=== PATIENT | male | born 1970 | race Caucasian/White ===

== ENCOUNTER 2017-08-06 11:26 | Outpatient (CLI) | payer MEDICARE, MEDICAID ==
--- NOTE | 2017-08-06 14:13 | CT ---
CT ABDOMEN AND PELVIS WITHOUT CONTRAST STONE PROTOCOL: Date: 08/06/17 HISTORY: Renal insufficiency; renal stones. COMPARISON: CT dated 06/12/14. FINDINGS: Mild atelectasis lung bases. No pericardial effusion. The right kidney is atrophic. There is abnormal thickening of the proximal right ureter, although it was seen on the prior examination. Punctate calculus superior pole right kidney. No calculus is see n within the left kidney. There is abnormal thickening of the proximal left ureter. Chow catheter is in place with wall thickening of the urinary bladder. No hydronephrosis. 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 Moderate stool burden of the rectal vault. No evidence of bowel obstruction. Chronic post interventi on change of the right external oblique muscle. Noncontrast evaluation of the liver, spleen, pancrea s, and gallbladder are unremarkable. Aortoiliac contour is nonaneurysmal. IMPRESSION: 1. Punctate nonobstructing calculus superior pole right kidney. 2. Atrophy of the right kidney. 3. Abnormal thickening of the proximal ureters bilaterally, can be seen with ureteritis or scarring , although urothelial malignancy cannot be totally excluded. If there is concern, CT urogram is scott mmended. 4. The left femoral nail extends outside the superior cortex. There is also chronic dislocation of the dysplastic left hip with neoacetabulum of left iliac wing. POS: [facility]
[2017-08-06] MEDS ORDERED: Furosemide 40 MG/4 ML VIAL ONE (14:51)
--- NOTE | 2017-08-06 15:31 | NM ---
DIURETIC RADIONUCLIDE RENOGRAM: Date: 08/06/17 HISTORY: Disorder of kidney and ureter, unspecified. Renal insufficiency. Congenital occlusion of ureteropelv ic junction. History of renal calculi. RADIOPHARMACEUTICAL: 8.8 mCi technetium-99m MAG3 injected intravenously. DIURETIC: 32 mg IV Lasix administered 15 minutes prior to the injection of the radiopharmaceutical. CORRELATION: CT scan from today. COMPARISON: Diuretic renogram of 06/03/16. FINDINGS: There is decreased flow and decreased uptake by the right kidney compared to the left with a differe ntial function of 27% on the right and 73% on the left. There is tracer excretion by both kidneys in to the urinary bladder (Chow in place). The renogram curves are downsloping despite a decreased peak and slower excretion pattern on the rig ht compared to the left. IMPRESSION: 1. No evidence of high grade obstruction on either side. 2. Decreased flow and function of the right kidney. POS: [facility]
== END 2017-08-06 11:27 | disposition home or self-care (01) ==
LOC: CT 11:26
PROVIDERS: ATTEND Urology
DX: N28.9 Disorder of kidney and ureter, unspecified (principal); Q62.11 Congenital occlusion of ureteropelvic junction; Z87.442 Personal history of urinary calculi; N20.0 Calculus of kidney; N26.1 Atrophy of kidney (terminal)
CPT/HCPCS: 74176; 78708; A4641; A9562; J1940

== ENCOUNTER 2017-11-16 12:13 | Outpatient (CLI) | payer MEDICARE, MEDICAID ==
[2017-11-16 12:55] LABS: Anion Gap 11 mmol/L (10-20); BUN (Urea Nitrogen) 34 mg/dL (8.9-20.6); Calc. Creatinine Clearance 0 mL/min (70-130); Calcium 9.4 mg/dL (7.8-10.44); Carbon Dioxide 23 mmol/L (22-29); Chloride 110 mmol/L (98-107); Estimated GFR-MDRD 60; Glucose 94 mg/dL (70-105); Potassium 4.9 mmol/L (3.5-5.1); Sodium 139 mmol/L (136-145)
--- NOTE | 2017-11-16 14:06 | ULT ---
RENAL ULTRASOUND: HISTORY: Kidney stone. COMPARISON: 12/22/16. TECHNIQUE: Multiplanar, guevara scale, and color Doppler images were obtained in a renal ultrasound. FINDINGS: The right kidney demonstrates cortical thinning and is echogenic. The left kidney is normal in echog enicity without hydronephrosis or calculus. The kidneys measure 7.6 and 9.3 cm in length on the righ t and left, respectively. Limited visualization of the urinary bladder is unremarkable. IMPRESSION: Echogenic right kidney may be secondary to chronic medical renal disease. POS: [facility]
--- NOTE | 2017-11-16 14:18 | RAD ---
ABDOMEN 1 VIEW: HISTORY: Urinary tract obstruction. COMPARISON: 07/23/09. FINDINGS: Gas and stool predominantly obscure the right renal shadow. Left renal shadow is not well visualized . Subtle irregularity density projecting over the right lower quadrant may represent surgical suture s. No urinary tract calcifications are reliably demonstrated. Phlebolith projects over the left pel vis. Internal fixation of the left hip is partially visualized. 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 IMPRESSION: Chronic-type findings are as detailed above. No urinary tract calcifications are reliably demonstrat ed. POS: [facility]
== END 2017-11-16 12:14 | disposition home or self-care (01) ==
LOC: ULT 12:13
PROVIDERS: ATTEND Urology
DX: N20.0 Calculus of kidney (principal); N36.0 Urethral fistula; Q62.11 Congenital occlusion of ureteropelvic junction; Z87.442 Personal history of urinary calculi
CPT/HCPCS: 36415; 74018; 76770; 80048

== ENCOUNTER 2018-12-06 12:35 | Outpatient (CLI) | payer MEDICARE, MEDICAID ==
--- NOTE | 2018-12-06 14:04 | RAD ---
KUB: Date: 12-06-18 Comparison: 11-16-17 History: Congenital occlusion, renal calculi. FINDINGS: Supine imaging is provided, limiting assessment for free intraperitoneal air and bowel obstruction. T here is gaseous distention of bowel within the midabdomen, likely on the basis of nongaseous distenti on of colon. No discrete calcification overlies either renal shadow. Congenital deformity of left hip noted, suggesting congenital developmental dysplasia. There is post-operative hardware associated wi th the proximal left femur. The bones are demineralized. IMPRESSION: No obvious renal calculi. Congenital/chronic abnormalities as detailed above. Mild gaseous distention noted involving the sigmoid colon. POS: [facility]
[2018-12-06 14:05] LABS: Anion Gap 15 mmol/L (10-20); BUN (Urea Nitrogen) 37 mg/dL (8.9-20.6); Calc. Creatinine Clearance 0 mL/min (70-130); Calcium 9.4 mg/dL (7.8-10.44); Carbon Dioxide 22 mmol/L (22-29); Chloride 115 mmol/L (98-107); Estimated GFR-MDRD 44; Glucose 69 mg/dL (70-105); Potassium 5.8 mmol/L (3.5-5.1); Sodium 146 mmol/L (136-145)
[2018-12-06 14:06] LABS: Bilirubin Moderate (Negative); Blood, Urine Trace (Negative); Glucose, Urine (Dipstick) Negative (Negative); Leukocyte Moderate (Negative); Nitrite Negative (Negative); Protein, Urine (Dipstick) Negative (Neg-Trace); Urobilinogen 0.2 mg/dL (0.2-1.0); pH, Urine 8.5 (5.0-9.0)
[2018-12-06 14:16] LABS: Clarity CLEAR (Clear)
[2018-12-06 14:18] LABS: Urine Culture Reflex No No
--- NOTE | 2018-12-06 14:58 | ULT ---
RENAL ULTRASOUND: Date: 12-06-18 Comparison: 11-16-17 History: Kidney stone. Technique: Multiplanar grayscale sonographic imaging of the kidneys and urinary bladder obtained. FINDINGS: Detailed assessment is somewhat limited secondary to bowel gas and wheelchair bound nature of patient . The right kidney is small and echogenic. Bowel gas obscures the majority of the right kidney limiting assessment for size and for right hepatic abnormality. Right kidney appears grossly unchanged when c ompared to the prior exam. The left kidney measures approximately 8.8 cm craniocaudal dimension and demonstrates no stone, hydro nephrosis, or mass. Imaging of the urinary bladder appears grossly unremarkable. IMPRESSION: Limited renal ultrasound, demonstrating no significant interval change when compared to the prior exa mination as detailed above. POS: [facility]
== END 2018-12-06 12:36 | disposition home or self-care (01) ==
LOC: ULT 12:35
PROVIDERS: ATTEND Urology
DX: N36.0 Urethral fistula (principal); Q62.11 Congenital occlusion of ureteropelvic junction; N20.0 Calculus of kidney; Q65.9 Congenital deformity of hip, unspecified; K63.89 Other specified diseases of intestine; Z87.442 Personal history of urinary calculi
CPT/HCPCS: 36415; 74018; 76770; 80048; 81003; 87077; 87086; 87186

== ENCOUNTER 2022-04-08 10:36 | Outpatient (CLI) | payer MEDICARE, MEDICAID | END 2022-04-08 10:37 | disposition home or self-care (01) | LOC: ULT 10:36 | PROVIDERS: ATTEND Urology | DX: N20.0 Calculus of kidney (principal); K59.00 Constipation, unspecified; N27.1 Small kidney, bilateral; N28.89 Other specified disorders of kidney and ureter | CPT/HCPCS: 74018; 76770 ==

== ENCOUNTER 2022-06-20 11:43 | Outpatient (CLI) | payer MEDICARE, MEDICAID ==
[2022-06-20 12:48] LABS: Hemoglobin 11.5 g/dL (13.5-17.5); Mean Corpuscular HGB CONC 31.4 g/dL (32.0-36.0); Mean Corpuscular Hemoglobin 30.2 pg (27.0-33.0); Mean Corpuscular Volume 96.1 fl (81.2-95.1); Mean Platelet Volume 9.5 fl (7.4-10.4); Platelet Count 262 10x3/uL (150-450); RBC Distribution Width 14.1 % (11.5-14.5); Red Blood Cell (RBC) Count 3.81 10x6/uL (4.32-5.72); White Blood Cell (WBC) Count 7.4 10x3/uL (3.5-10.5)
[2022-06-20 13:11] LABS: PTT 31.4 sec (22.0-33.0); Prothrombin Time 10.6 sec (9.5-12.1)
[2022-06-20 13:12] LABS: Anion Gap 14 mmol/L (10-20); BUN (Urea Nitrogen) 29 mg/dL (8.9-20.6); Calc. Creatinine Clearance 0 mL/min (70-130); Calcium 8.9 mg/dL (7.8-10.44); Carbon Dioxide 26 mmol/L (22-29); Chloride 105 mmol/L (98-107); Estimated GFR 60; Glucose 95 mg/dL (70-105); Potassium 5.1 mmol/L (3.5-5.1); Sodium 140 mmol/L (136-145)
== END 2022-06-20 11:44 | disposition home or self-care (01) ==
LOC: LABBT 11:43
PROVIDERS: ATTEND Urology
DX: Z01.818 Encounter for other preprocedural examination (principal); N20.0 Calculus of kidney; N36.0 Urethral fistula; Q62.11 Congenital occlusion of ureteropelvic junction; R32 Unspecified urinary incontinence; Z20.822 Contact with and (suspected) exposure to COVID-19
CPT/HCPCS: 80048; 85027; 85610; 85730; 87811; 93005; 93010

== ENCOUNTER 2022-07-14 07:30 | Outpatient (CLI) | payer MEDICARE, MEDICAID | END 2022-07-14 07:31 | disposition home or self-care (01) | LOC: NM 07:30 | PROVIDERS: ATTEND Urology | DX: N20.0 Calculus of kidney (principal); Q62.11 Congenital occlusion of ureteropelvic junction | CPT/HCPCS: 78708; A4641; A9562 ==